=== PATIENT | male | born 1985 | race Caucasian/White ===

== ENCOUNTER 2017-07-18 07:00 | Emergency (ER) | payer OTHER ==
[2017-07-18] MEDS: ONDANSETRON (ODT) 4 MG TAB ODT (08:45)
[2017-07-18] MEDS: KETOROLAC 30 MG INJ IM (08:45)
[2017-07-18] MEDS: HYDROCODONE/APAP (5/325) TAB PO (08:45)
== END 2017-07-18 10:30 | disposition home or self-care (01) ==
LOC: FTE 07:00
DX: S39.012A Strain of muscle, fascia and tendon of lower back, initial encounter (principal); X58.XXXA Exposure to other specified factors, initial encounter; Y92.9 Unspecified place or not applicable
CPT/HCPCS: 96372; 99284-25